=== PATIENT | female | born 1975 | race Caucasian/White ===

== ENCOUNTER 2017-02-23 08:52 | Emergency (ER) | payer SELFPAY ==
[~2017-02-23] VITALS: Ht 172.7 cm; Wt 85.3 kg
[~2017-02-23 08:52] MED LIST: AMOX500T PO
[2017-02-23 08:59] VITALS: BP 136/67; PULSE 71; RESP 18; TEMP 97.9; O2SAT 100
[2017-02-23] MEDS ORDERED: METH10TA PO (10:11)
--- NOTE | 2017-02-23 11:19 | PD ---
HPI Chief Complaint: Cold / Flu Symptoms Time Seen by Provider: 11:19 Travel History International Travel<30 days: No Contact w/Intl Traveler<30days: No Traveled to known affect area: No History of Present Illness HPI 41 y female with a 3 day history of an uncomfortable nonproductive cough, moderate sore throat, and nausea without vomiting. States that she has a mild right-sided frontal headache for 1 day. She denies fever, chills, chest pain, shortness of breath. States that she feels like she 'has something in her throat that she can't cough up'. States she tried ibuprofen and nyquil without relief of her sore throat. No recent travel. 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 States she went to her vet office a couple of days ago where she exposed to cat dander and this usually causes some congestion for a few days. PFSH Past Medical History Diminished Hearing: No Immunizations Current: No Thyroid Disease: Yes ?: Not Tubal Ligation: Yes Social History Alcohol Use: Yes (SOCIALLY) Tobacco Use: No Substance Use: No Allergies-Medications (Allergen,Severity, Reaction): Coded Allergies: No Known Allergies (Verified , 02/23/17) Reported Meds & Prescriptions Reported Meds & Active Scripts Active Zofran (Ondansetron HCl) 4 Mg Tab 4 Mg PO Q8HR PRN 3 Days Medrol Dosepak (Methylprednisolone) 4 Mg Dspk 4 Mg PO DIRECTED Per Pharmacist direction Reported Methadone (Methadone HCl) 10 Mg Tab 10 Mg PO DAILY Review of Systems Except as stated in HPI: all other systems reviewed are Neg Physical Exam Narrative GENERAL: Well-nourished, well-developed patient. SKIN: Focused skin assessment warm/dry. HEAD: Normocephalic. Tenderness palpation of the right and left frontal sinuses. THROAT: No pharyngeal injection, exudates, or tonsillar hypertrophy. Airway is patent. Mild cobblestoning of the posterior pharynx. EYES: No scleral icterus. No injection or drainage. EARS: Bilateral pinnae and external canals appear within normal limits. Bilateral tympanic membranes without erythema, dullness or perforation. Scant air-fluid level. NECK: Supple, trachea midline. No JVD. Mild anterior cervical lymphadenopathy CARDIOVASCULAR: Regular rate and rhythm without murmurs, gallops, or rubs. RESPIRATORY: Breath sounds equal bilaterally. No accessory muscle use. GASTROINTESTINAL: Abdomen soft, non-tender, nondistended. MUSCULOSKELETAL: No cyanosis, or edema. BACK: Nontender without obvious deformity. No CVA tenderness. Data Data Last Documented VS Vital Signs Date Time Temp Pulse Resp B/P (MAP) Pulse Ox O2 Delivery O2 Flow Rate FiO2 02/23/17 08:59 97.9 71 18 136/67 (90) 100 Orders Orders Group A Rapid Strep Screen (02/23/17 10:51) Methylprednisolone So Succ Inj (Solumedr (02/23/17 11:30) Ondansetron Odt (Zofran Odt) (02/23/17 11:30) Strep Culture (Group A) (02/23/17 10:50) Ed Discharge Order (02/23/17 12:10) MDM Medical Decision Making Medical Screen Exam Complete: Yes Emergency Medical Condition: Yes Differential Diagnosis Allergic pharyngitis versus strep pharyngitis versus pneumonia Narrative Course 41-year-old female presents to emergency department complaining of sore throat, nonproductive cough, and nausea. She denies fever, chills, chest pain, shortness of breath. States that she went to her veterinary office 3 days ago and was exposed to cat dander. She has had no recent travel. She works as a service counter cashier and does not know if she's been exposed to any sick contacts. Physical exam demonstrates mild tenderness to palpation of the frontal sinuses, mild cobblestoning of the pharynx, and hoarseness in her voice. Cranial nerves II through XII grossly intact. Physical exam otherwise normal. Patient is diagnosed with allergic pharyngitis possibly developing sinusitis. Advised patient to follow up with her primary care physician within 2 days. Return to the emergency department for treatment evaluation if signs symptoms persist or worsen Diagnosis Primary Impression: Allergic pharyngitis Additional Impression: Nausea Referrals: Primary Care Physician Departure Forms: Tests/Procedures, Work Release Enter return to work date: Feb 25, 2017 Additional Instructions: Continue Tylenol or Motrin per package instructions for your headache. Take medications as prescribed. If he feels no better or worse or develop fever or shortness of breath return to the emergency department for further treatment and evaluation. Turn to primary care physician within one week. Scripts Ondansetron (Zofran) 4 Mg Tab 4 MG PO Q8HR Y for NAUSEA OR VOMITING for 3 Days, TAB 0 Refills Prov: Sal Sofia MD 02/23/17 Methylprednisolone Dosepak (Medrol Dosepak) 4 Mg Dspk 4 MG PO DIRECTED, #1 DSPK 0 Refills Per Pharmacist direction Prov: Sal Sofia MD 02/23/17 Disposition: 01 DISCHARGE HOME Condition: Stable Nury Pereyra Feb 23, 2017 11:19
[2017-02-23] MEDS ORDERED: MEDR4PAK PO (11:21)
[2017-02-23] MEDS ORDERED: methylPREDNISolone SOD SUCC 125 MG/2 ML VIAL IM ONE (11:30)
[2017-02-23] MEDS ORDERED: ONDANSETRON ODT 4 MG TAB PO ONE (11:30)
[2017-02-23] MEDS ORDERED: ZOFR4TAB PO (12:09)
== END 2017-02-23 12:19 | disposition home or self-care (01) ==
LOC: PHED 08:52 → PHEFT 12:19
DX: J02.9 Acute pharyngitis, unspecified (principal); R11.0 Nausea; R05 Cough
CPT/HCPCS: 87081; 87880; 96372; 99284; J2930

== ENCOUNTER 2017-05-31 13:55 | Emergency (ER) | payer SELFPAY ==
[~2017-05-31 13:55] MED LIST changes: -AMOX500T PO; +MEDR4PAK PO; +METH10TA PO; +ZOFR4TAB PO
[2017-05-31 14:10] VITALS: BP 120/59; PULSE 75; RESP 16; TEMP 97.5; O2SAT 100
[2017-05-31 14:22] LABS: BLOOD, URINE LARGE (NEG); GLUCOSE,URINE 100 mg/dL (NEG); KETONE, URINE NEG (NEG); NITRITE,URINE POS (NEG); PH, URINE 5.5 (5.0-8.5); URINE LEUKOCYTE ESTERASE MOD (NEG)
[2017-05-31 14:26] LABS: BILIRUBIN, URINE NEG (NEG)
[2017-05-31 14:30] LABS: URINE COLOR ORANGE (YELLW/STRAW)
[2017-05-31 14:31] LABS: BACTERIA, URINE MOD /hpf; RBC, URINE 0-3 /hpf (0-3); SQUAMOUS EPITHELIAL CELL URINE 0-5 /hpf (0-5); WHITE BLOOD CELL CLUMPS OCC
[2017-05-31] MEDS ORDERED: METH5TAB PO (14:32)
[2017-05-31 14:41] VITALS: BP 146/75; PULSE 75; RESP 18; TEMP 97.6; O2SAT 96
[2017-05-31] MEDS ORDERED: ONDANSETRON ODT 4 MG TAB PO ONE (15:00)
[2017-05-31] MEDS ORDERED: MACR100C2 PO (15:02)
[2017-05-31] MEDS ORDERED: PROM25TA10 PO (15:02)
--- NOTE | 2017-05-31 15:04 | PD ---
HPI Chief Complaint: Complaint Time Seen by Provider: 14:39 Travel History International Travel<30 days: No Contact w/Intl Traveler<30days: No Traveled to known affect area: No History of Present Illness HPI 41-year-old female presents with 2 days of dysuria, increased urinary frequency , suprapubic discomfort. She reports a burning sensation when she urinates with no aggravating or alleviating factors. She endorses associated nausea today. Denies vaginal bleeding, discharge, flank pain. She has had some chills but no objective fevers. No other complaints at this time. PFSH Past Medical History Medical History: Denies Significant Hx Diminished Hearing: No Immunizations Current: No Thyroid Disease: Yes Tetanus Vaccination: Unknown Influenza Vaccination: No ?: Not Tubal Ligation: Yes Social History Alcohol Use: Yes (SOCIALLY) Tobacco Use: No Substance Use: No Allergies-Medications (Allergen,Severity, Reaction): Coded Allergies: No Known Allergies (Verified , 02/23/17) Reported Meds & Prescriptions Reported Meds & Active Scripts Active Phenergan (Promethazine HCl) 25 Mg Tablet 25 Mg PO Q6H PRN Macrobid (Nitrofurantoin Monoh/Nitrofur Macro) 100 Mg Cap 100 Mg PO BID 7 Days Reported Methadone (Methadone HCl) 5 Mg Tab 5 Mg PO EVERY OTHER DAY Methadone (Methadone HCl) 10 Mg Tab 10 Mg PO DAILY Review of Systems Except as stated in HPI: all other systems reviewed are Neg Physical Exam Narrative GENERAL: Well-developed well-nourished female in no acute distress SKIN: Warm and dry. HEAD: Atraumatic. Normocephalic. EYES: Pupils equal and round. No scleral icterus. No injection or drainage. ENT: No nasal bleeding or discharge. Mucous membranes pink and moist. NECK: Trachea midline. No JVD. CARDIOVASCULAR: Regular rate and rhythm. No murmur appreciated. RESPIRATORY: No accessory muscle use. Clear to auscultation. Breath sounds equal bilaterally. GASTROINTESTINAL: Abdomen soft, non-tender, nondistended. Hepatic and splenic margins not palpable. Data Data Last Documented VS Vital Signs Date Time Temp Pulse Resp B/P (MAP) Pulse Ox O2 Delivery O2 Flow Rate FiO2 05/31/17 14:41 97.6 75 18 146/75 (98) 96 Room Air Orders Orders Urinalysis - C+S If Indicated (05/31/17 14:04) Ed Urine Pregnancytest Poc (05/31/17 14:04) Urine Culture (05/31/17 14:05) Ondansetron Odt (Zofran Odt) (05/31/17 15:00) Ed Discharge Order (05/31/17 15:02) Labs Laboratory Tests Test 05/31/17 14:05 Urine Collection Type CLEAN CATCH Urine Color ORANGE Urine Turbidity SLIGHTY CLOUDY Urine pH 5.5 Urine Specific [place] 1.020 Urine Protein 100 mg/dL Urine Glucose (UA) 100 mg/dL Urine Ketones NEG mg/dL Urine Occult Blood LARGE Urine Nitrite POS Urine Bilirubin NEG Urine Leukocyte Esterase MOD Urine RBC 0-3 /hpf Urine WBC 25-49 /hpf Urine WBC Clumps OCC Urine Squamous Epithelial Cells 0-5 /hpf Urine Bacteria MOD /hpf Microscopic Urinalysis Comment CULTURE INDICATED MDM Medical Decision Making Medical Screen Exam Complete: Yes Emergency Medical Condition: Yes Medical Record Reviewed: Yes Differential Diagnosis Cystitis, pyelonephritis, pelvic inflammatory disease Narrative Course Examination and history are consistent with urinary tract infection. The patient is being discharged with Phenergan, Macrobid, pending urine culture results. Diagnosis Primary Impression: Urinary tract infection Additional Instructions: Medication as prescribed. Stay well-hydrated and well-nourished. return for any emergent medical conditions. Med/Other Pt SpecificInfo: Prescription(s) given Scripts Promethazine (Phenergan) 25 Mg Tablet 25 MG PO Q6H Y for NAUSEA OR VOMITING, #15 TAB 0 Refills Prov: Rafael Freitas MD 05/31/17 Nitrofurantoin Monohydrate Macrocrystals (Macrobid) 100 Mg Cap 100 MG PO BID for Infection for 7 Days, #14 CAP 0 Refills Prov: Rafael Freitas MD 05/31/17 Disposition: 01 DISCHARGE HOME Condition: Stable Germain Bobo May 31, 2017 15:04
== END 2017-05-31 15:34 | disposition home or self-care (01) ==
LOC: PHEFT 13:55
DX: N39.0 Urinary tract infection, site not specified (principal); B96.20 Unspecified Escherichia coli [E. coli] as the cause of diseases classified elsewhere; Z79.899 Other long term (current) drug therapy
CPT/HCPCS: 81001; 84703; 87077; 87086; 87186; 99284

== ENCOUNTER 2017-07-25 09:41 | Emergency (ER) | payer OTHER ==
[~2017-07-25] VITALS: Ht 172.7 cm; Wt 85.7 kg
[~2017-07-25 09:41] MED LIST changes: +MACR100C2 PO; -MEDR4PAK PO; +METH5TAB PO; +PROM25TA10 PO; -ZOFR4TAB PO
[2017-07-25 09:44] VITALS: BP 154/75; PULSE 73; RESP 16; TEMP 97.4; O2SAT 98
[2017-07-25] MEDS ORDERED: METHI10 PO (09:57)
[2017-07-25] MEDS ORDERED: METH5TAB4 PO (09:57)
[2017-07-25 10:04] LABS: BILIRUBIN, URINE NEG (NEG); BLOOD, URINE LARGE (NEG); GLUCOSE,URINE NEG (NEG); KETONE, URINE NEG (NEG); NITRITE,URINE NEG (NEG); URINE LEUKOCYTE ESTERASE MOD (NEG)
[2017-07-25 10:05] LABS: URINE COLOR STRAW (YELLW/STRAW)
[2017-07-25 10:14] LABS: RBC, URINE 0-3 /hpf (0-3); WBC, URINE 15-19 /hpf (0-5); WHITE BLOOD CELL CLUMPS MOD
[2017-07-25] MEDS ORDERED: BACT800T5 PO (10:38)
--- NOTE | 2017-07-25 10:38 | PD ---
HPI Chief Complaint: Complaint Time Seen by Provider: 10:08 Travel History International Travel<30 days: No Contact w/Intl Traveler<30days: No Traveled to known affect area: No History of Present Illness HPI 41-year-old female complains of dysuria and frequency. Patient states that the symptoms started several days ago. Patient denies any fever chills. Patient denies any back pain. Patient denies any chance of being . PFSH Past Medical History Diminished Hearing: No Immunizations Current: No Thyroid Disease: Yes ?: Unknown Tubal Ligation: Yes Social History Alcohol Use: Yes (SOCIALLY) Tobacco Use: No Substance Use: No Allergies-Medications (Allergen,Severity, Reaction): Coded Allergies: No Known Allergies (Verified Adverse Reaction, Unknown, 07/25/17) Reported Meds & Prescriptions Reported Meds & Active Scripts Active Reported Methimazole 10 Mg Tab 10 Mg PO EVERY OTHER DAY Methimazole 5 Mg Tab 5 Mg PO EVERY OTHER DAY Review of Systems General / Constitutional: No: Fever Eyes: No: Visual changes HENT: No: Headaches Cardiovascular: No: Chest Pain or Discomfort Respiratory: No: Shortness of Breath Gastrointestinal: No: Abdominal Pain Genitourinary: Positive: Frequency, Dysuria Musculoskeletal: No: Pain Skin: No Rash Neurologic: No: Weakness Psychiatric: No: Depression Endocrine: No: Polydipsia Hematologic/Lymphatic: No: Easy Bruising Physical Exam Narrative GENERAL: Well-nourished, well-developed patient. SKIN: Focused skin assessment warm/dry. HEAD: Normocephalic. EYES: No scleral icterus. No injection or drainage. NECK: Supple, trachea midline. No JVD or lymphadenopathy. CARDIOVASCULAR: Regular rate and rhythm without murmurs, gallops, or rubs. RESPIRATORY: Breath sounds equal bilaterally. No accessory muscle use. GASTROINTESTINAL: Abdomen soft, non-tender, nondistended. MUSCULOSKELETAL: No cyanosis, or edema. BACK: Nontender without obvious deformity. No CVA tenderness. Neurologic exam normal. Data Data Last Documented VS Vital Signs Date Time Temp Pulse Resp B/P (MAP) Pulse Ox O2 Delivery O2 Flow Rate FiO2 07/25/17 09:44 97.4 73 16 154/75 (101) 98 Orders Orders Urinalysis - C+S If Indicated (07/25/17 09:47) Urine Culture (07/25/17 09:55) Ed Discharge Order (07/25/17 10:32) Labs Laboratory Tests Test 07/25/17 09:55 Urine Collection Type CLEAN CATCH Urine Color STRAW Urine Turbidity CLEAR Urine pH 6.0 Urine Specific [place] LESS/EQUAL 1.005 Urine Protein NEG mg/dL Urine Glucose (UA) NEG mg/dL Urine Ketones NEG mg/dL Urine Occult Blood LARGE Urine Nitrite NEG Urine Bilirubin NEG Urine Urobilinogen 0.2 MG/DL Urine Leukocyte Esterase MOD Urine RBC 0-3 /hpf Urine WBC 15-19 /hpf Urine WBC Clumps MOD Microscopic Urinalysis Comment CULTURE INDICATED MDM Medical Decision Making Medical Screen Exam Complete: Yes Emergency Medical Condition: Yes Differential Diagnosis Differential diagnosis including urethritis, UTI, pyelonephritis, nephrolithiasis. Narrative Course 41-year-old female with dysuria and frequency. Diagnosis Primary Impression: UTI (urinary tract infection) Qualified Codes: N30.00 - Acute cystitis without hematuria Patient Instructions: General Instructions Additional Instructions: Bactrim DS as directed. Follow-up with personal physician. Return if worse. Med/Other Pt SpecificInfo: Prescription(s) given Scripts Sulfamethoxazole-Trimethoprim (Bactrim DS) 800-160 Mg Tab 1 TAB PO BID for Infection, #14 TAB 0 Refills Prov: Gregorio Fleming MD 07/25/17 Disposition: 01 DISCHARGE HOME Condition: Stable Gregorio Fleming MD Jul 25, 2017 10:38
== END 2017-07-25 10:51 | disposition home or self-care (01) ==
LOC: PHEFT 09:41
DX: N39.0 Urinary tract infection, site not specified (principal); E07.9 Disorder of thyroid, unspecified; Z79.899 Other long term (current) drug therapy
CPT/HCPCS: 81001; 87086; 99283